=== PATIENT | male | born 1995 | race Caucasian/White ===

== ENCOUNTER 2017-06-15 00:27 | Emergency (ER) | payer OTHER ==
[2017-06-15 00:34] VITALS: BP 148/92; PULSE 78; RESP 16; TEMP 97.5; O2SAT 95
[2017-06-15] MEDS ORDERED: PROPARACAINE 0.5% 15 ML OPHT DROP OP ONE (01:07)
[2017-06-15] MEDS ORDERED: AMOXICILLIN/CLAVULANATE POT 875/125 MG TAB PO ONE (01:07)
[2017-06-15] MEDS ORDERED: FLUORESCEIN SODIUM 1 MG STRIP OP ONE (01:07)
[2017-06-15] MEDS ORDERED: ERYTHROMYCIN 0.5% 1 GM OPHT.OINT RTEYE ONE (01:59)
--- NOTE | 2017-06-15 01:59 | EDPHY ---
General Narrative: CHIEF COMPLAINT: Dog bite to right eye HISTORY OF PRESENT ILLNESS: Patient complains of dog bite to the right eye. This happened less than 1 hr ago. He was at a friend's house when a pit bull jumped off the couch and bit him when he was trying to pet him. The dog is reportedly up-to-date on his vaccinations. No previous known aggressive behavior. He says he was bit in the right eye. He denies any difficulty with vision but notes some swelling of the eyelid. There lacerations to the right eyelid and just lateral to the right eye. Mildly painful. Some bleeding that has stopped. No painful movement of the eyes. No headache. No loss of consciousness. No injury elsewhere. He is up-to-date on his tetanus vaccination. No other associated complaints or modifying factors. TIME OF INJURY: Less than 2 hr ago TETANUS STATUS: Up-to-date MEDICAL/SURGICAL/SOCIAL HISTORY: Uncomplicated. [employer] student. Plays [employer]. Originally from [place] REVIEW OF SYSTEMS: Ten systems reviewed and are negative unless otherwise noted in the HPI EXAMINATION General Appearance: Alert, no distress Head: normocephalic. Ecchymosis to the area of dog bite. HEENT: Pupils equal round reactive to light. No hyphema. No subconjunctival hemorrhage. 1.5 cm laceration to the right upper eyelid that is superficial. There is a 0.5 cm laceration to the right of the right eye, up to but not including the lateral canthus. No foreign body in either the lacerations. Visual colon intact by confrontation. Fluorescein exam: Wood lamp examination reveals no fluorescein uptake. No foreign body. Lid everted. Cardiovascular: Pulses normal throughout. Brisk cap refill Neurological: GCS 15. A&O, sensory symmetric, strength symmetric Skin: Warm and dry, no rash. Lacerations as above Extremities: Nontender, no pedal edema DIFFERENTIAL DIAGNOSES: Including but not limited to laceration, superficial laceration, complex laceration, laceration with canthus injury, corneal abrasion, conjunctival abrasion MDM: 1:20 a.m. Dog bite to the right eyelid and just lateral to the right eye. No obvious injury to the eye or canthus. Tetanus up-to-date. I have anesthetized the laceration. Proceed with irrigation re-evaluation. 2:00 a.m. Lacerations irrigated and re-evaluated. The upper eyelid laceration has been closed without difficulty. There was special attention taken to avoid the tarsal plate. The lateral laceration did not involve the lateral canthus. It was very close to this but did not included. This was a superficial laceration that was actually a skin tear. This was closed with simple suture. We discuss erythromycin ointment to the eye 3 times daily. We discussed Augmentin twice daily, 1st dose was given here. We discussed close monitoring of the wound given the etiology. We discussed Ophthalmology follow-up on Friday, and this information has been provided. We discussed ED precautions. He is comfortable this plan. His visual acuity is normal by my evaluation. He is discharged home in stable condition. PROCEDURE: Laceration repair, #1. Consent: Verbal Location: Right upper eyelid Length of repair: 1.5 cm Complexity: Complex due to location Layer involvement: Single Anesthesia: Local per 1% lidocaine plain. 5 mL Irrigation: Extensive Debridement: None Procedure description: Following good anesthesia, the wound was copiously irrigated. Wound bed was explored with a sterile glove, and there is no foreign body noted. No obvious injury to the tarsal plate. No foreign body. No injury to the inner eyelid. Wound borders were approximated well with good hemostasis. Tolerated well without complication. Suture/Staple material: 6-0 Prolene, 2 simple interrupted sutures Wound care: Routine as discussed Suture/Staple removal: 5-7 Days PROCEDURE: Laceration repair, #2 Consent: Verbal Location: Right cheek, just lateral to canthus Length of repair: 1 cm Complexity: Simple Layer involvement: Single Anesthesia: Local. 1% lidocaine plain. 3 mL Irrigation: Extensive Debridement: None Procedure description: Following good anesthesia, the wound was copiously irrigated. Wound bed was explored with a sterile glove, and there is no foreign body noted. No injury to the canthus. Wound borders were approximated well with good hemostasis. Tolerated well without complication. Suture/Staple material: 6-0 Prolene, 1 simple interrupted suture Wound care: Routine as discussed Suture/Staple removal: 5-7 Days SUPERVISION: Patient was independently examined, but I discussed the case with my secondary supervising physician Dr. Miguel ED Precautions: Worsening pain. Erythema, edema, cyanosis, pallor, paresthesia or anesthesia. - History Smoking Status: Never smoked - Objective Vital Signs: Initial Vital Signs Temperature (C) 97.5 F 06/15/17 00:31 Heart Rate 78 06/15/17 00:31 Respiratory Rate 16 06/15/17 00:31 Blood Pressure 148/92 H 06/15/17 00:31 O2 Sat (%) 95 06/15/17 00:31 O2 Delivery Mode Room Air Allergies/Adverse Reactions: No Known Allergies Allergy (Unverified 06/15/17 00:34) Home Medications: Medication Instructions Recorded Amoxicillin/Clavulanate Pot 875 mg PO BID #14 tab 06/15/17 [Augmentin 875 MG TAB (*)] Medications Given: Discontinued Medications Amoxicillin/Clavulanate Potassium (Augmentin 875mg) 875 mg PO EDNOW ONE PRN Reason: Protocol Stop: 06/15/17 01:08 Last Admin: 06/15/17 01:16 Dose: 875 mg Erythromycin (Erythromycin 0.5%) 1 jose RTEYE ONCE ONE Stop: 06/15/17 02:00 Last Admin: 06/15/17 02:16 Dose: 1 jose Fluorescein Sodium ([id number]) 1 mg OP EDNOW ONE Stop: 06/15/17 01:08 Last Admin: 06/15/17 01:17 Dose: 1 mg Proparacaine HCl (Alcaine 0.5%) 1 drops OP EDNOW ONE Stop: 06/15/17 01:08 Last Admin: 06/15/17 01:16 Dose: 1 drop Departure - Departure Disposition: Home, Routine, Self-Care Clinical Impression: Dog bite of face Qualifiers: Encounter type: initial encounter Qualified Code(s): S01.85XA - Open bite of other part of head, initial encounter; W54.0XXA - Bitten by dog, initial encounter; W54.0XXA - Bitten by dog, initial encounter Eyelid laceration, right Qualifiers: Encounter type: initial encounter Qualified Code(s): S01.111A - Laceration without foreign body of right eyelid and periocular area, initial encounter Condition: Good Instructions: Erythromycin (Into the eye), Animal Bite (ED), Care For Your Stitches (ED), Laceration (ED) Additional Instructions: 1. Augmentin as prescribed to completion 2. Erythromycin ointment to the right eye until seen by blade operator 3. Contact blade operator Jayson morning for outpatient evaluation on Friday or Friday 4. Return to emergency department for wound check in 48 hr unless seen by blade operator that day 5. ED precautions as discussed 6. Suture removal in this emergency department in 5-7 days Referrals: Adia Reese MD [Medical Doctor] - As per Instructions Prescriptions: Amoxicillin/Clavulanate Pot [Augmentin 875 MG TAB (*)] 875 mg PO BID #14 tab
== END 2017-06-15 02:20 | disposition home or self-care (01) ==
PROC: 0HQ1XZZ Repair Face Skin, External Approach (ICD-10-PCS; principal; 2017-06-15)
PROC: 08QNXZZ Repair Right Upper Eyelid, External Approach (ICD-10-PCS; principal; 2017-06-15)
DX: S01.85XA Open bite of other part of head, initial encounter (principal); S01.111A Laceration without foreign body of right eyelid and periocular area, initial encounter; W54.0XXA Bitten by dog, initial encounter; Y92.009 Unspecified place in unspecified non-institutional (private) residence as the place of occurrence of the external cause; Y93.39 Activity, other involving climbing, rappelling and jumping off

== ENCOUNTER 2018-05-01 01:53 | Emergency (ER) | payer OTHER ==
--- NOTE | 2018-05-01 02:05 | EDPHY ---
H & P Stated Complaint: FACIAL LACS, FALL/ETOH Time Seen by Provider: 05/01/18 02:05 HPI/ROS: HPI CHIEF COMPLAINT: Fall alcohol intoxication, multiple facial lacerations HISTORY OF PRESENT ILLNESS: 23-year-old male, presents emergency room at 2:00 a.m. The morning after he had a mechanical trip and fall. He went out drinking tonight for his 23st birthday which was 2 days ago. States he had a large amount of liquor to drink tonight. Over 5 shots. Became intoxicated, was walking home with friends tripped and fell landing on his face. He has a hematoma to the right forehead, a midline forehead laceration, a laceration over the nasal bridge, and a right upper lip laceration. Patient dentition intact. No malocclusion with bite. No jaw pain. No LOC. No vomiting. Arrives to the emergency room highly intoxicated with alcohol. Smells of alcohol slurring his speech. Reports tetanus shot is up-to-date. Past Medical History: Denies medical history Past Surgical History: Denies surgical history Social History: Large amount of alcohol this evening. [employer] student. Family History: Noncontributory ROS REVIEW OF SYSTEMS: 10 Systems were reviewed and negative with the exception of the elements mentioned in the history of present illness. Exam Constitutional intoxicated, smells of alcohol, slurring speech triage nursing summary reviewed, vital signs reviewed, awake/alert. Eyes normal conjunctivae and sclera, EOMI, PERRLA. HENT normal inspection, atraumatic, moist mucus membranes, no epistaxis, neck supple/ no meningismus, no raccoon eyes. Face: Midface stable, no crepitus, no malocclusion with bite, dentition intact , no Vazquez sign, no raccoon eyes, multiple facial lacerations, nasal bridge swollen. Eyes unremarkable. 1. 1.5 cm horizontally mid forehead laceration 2. Nasal bridge 2 cm laceration middle nasal bridge 3. Right upper lip laceration 3 V shaped cm. 4. Multiple superficial abrasions to the right upper lip. 5. No septal hematoma on exam. 6. Upper lip laceration middle 3cm vertical 7. Inside lower lip small tear to frenulum. Respiratory clear to auscultation bilaterally, normal breath sounds, no respiratory distress, no wheezing. Cardiovascular rate normal, regular rhythm, no murmur, no edema, distal pulses normal. Gastrointestinal soft, non-tender, no rebound, no guarding, normal bowel sounds, no distension, no pulsatile mass. Genitourinary no CVA tenderness. Musculoskeletal no midline vertebral tenderness, full range of motion, no calf swelling, no tenderness of extremities, no meningismus, good pulses, neurovascularly intact. Skin pink, warm, & dry, no rash, skin atraumatic. Neurologic awake, alert and oriented x 3, AAOx3, moves all 4 extremities equally, motor intact, sensory intact, CN II-XII intact, normal cerebellar, normal vision, slurring speech intoxicated with alcohol Psychiatric normal mood/affect. Heme/Lymph/Immune no lymphadenopathy. Differential Diagnosis: Includes but is not limited to acute alcohol intoxication, closed head injury, intracranial bleed, skull fracture, scalp hematoma, multiple soft tissue injuries, multiple lacerations Medical Decision Making: Plan for this patient CT scan head without contrast CT cervical spine without contrast given alcohol intoxication and fall and trauma will then need to clean his wounds out copiously. And then will need repair. Re-evaluation: Indication for CT scan head and neck fall, alcohol intoxication, multiple facial lacerations, right forehead hematoma. CT scan head without contrast and CT cervical spine without contrast negative for acute trauma called to me by Dr. Babb. Laceration Repair Procedure: Verbal Consent was obtained, Under sterile conditions, The patient had lidocaine with epinephrine used approximately 3ccs to local anesthetize the 1.5 cm horizontally mid forehead laceration. The wound was copiously irrigated with sterile fluid, the wound was explored for foreign bodies there were none visualized, the wound was explored with a sterile glove to the base. There are no deep structures involved, including no arterial injury. ONE 6.O PROLENE interrupted Sutures were placed in this patient's laceration. He had good close approximation of the wound edges. He Tolerated this well. Laceration Repair Procedure: Verbal Consent was obtained, Under sterile conditions, The patient had lidocaine with epinephrine used approximately 4ccs to local anesthetize the Nasal bridge 2 cm laceration middle nasal bridge Laceration. The wound was copiously irrigated with sterile fluid, the wound was explored for foreign bodies there were none visualized, the wound was explored with a sterile glove to the base. There are no deep structures involved, including no arterial injury. TWO 6.O PROLENE interrupted Sutures were placed in this patient's laceration. He had good close approximation of the wound edges. He Tolerated this well. Laceration Repair Procedure: Verbal Consent was obtained, Under sterile conditions, The patient had lidocaine with epinephrine used approximately 3ccs to local anesthetize the Right upper lip laceration 3 V shaped cm.Laceration. The wound was copiously irrigated with sterile fluid, the wound was explored for foreign bodies there were none visualized, the wound was explored with a sterile glove to the base. There are no deep structures involved, including no arterial injury. THREE 6.O PROLENE interrupted Sutures were placed in this patient's laceration. He had good close approximation of the wound edges. He Tolerated this well. Laceration Repair Procedure: Verbal Consent was obtained, Under sterile conditions, The patient had lidocaine with epinephrine used approximately 3ccs to local anesthetize the Upper lip laceration middle 3cm vertical Laceration. The wound was copiously irrigated with sterile fluid, the wound was explored for foreign bodies there were none visualized, the wound was explored with a sterile glove to the base. There are no deep structures involved, including no arterial injury. TWO 6.O PROLENE interrupted Sutures were placed in this patient's laceration. He had good close approximation of the wound edges. He Tolerated this well. Of note these patient's wounds were copiously irrigating clean. Antibiotics will be given for prophylactic coverage. Patient understands have sutures removed in 7 days. Patient understands to watch for signs of infection this includes redness, drainage, pus, swelling, pain. Fever. Return if worse. Patient is comfortable this plan understands. I discussed this at length the patient's friends at bedside. As the patient is intoxicated. Additionally this will be placed on his discharge paperwork. Breath alcohol 182 at time of admission to the ER. 4:29 a.m. Patient ambulated well throughout the emergency room without any difficulty. Stable gait. Clinically sober. Source: Patient - Personal History Current Tetanus Diphtheria and Acellular Pertussis (TDAP): Yes - Medical/Surgical History Hx Asthma: No Hx Chronic Respiratory Disease: No Hx Diabetes: No Hx Cardiac Disease: No Hx Renal Disease: No Hx Cirrhosis: No Hx Alcoholism: No Hx HIV/AIDS: No Hx Splenectomy or Spleen Trauma: No Other PMH: none - Social History Smoking Status: Never smoked Constitutional: Initial Vital Signs Temperature (C) 36.3 C 05/01/18 02:02 Heart Rate 68 05/01/18 02:02 Respiratory Rate 16 05/01/18 02:02 Blood Pressure 137/76 H 05/01/18 02:02 O2 Sat (%) 95 05/01/18 02:02 O2 Delivery Mode Room Air Allergies/Adverse Reactions: No Known Allergies Allergy (Verified 05/01/18 02:00) Home Medications: Medication Instructions Recorded Cephalexin [Keflex (*)] 500 mg PO Q6H #28 cap 05/01/18 Medical Decision Making - Data Points Medications Given: Discontinued Medications Cephalexin (Keflex 500 Mg Prepack#4) 1 btl TAKEHOME EDNOW ONE PRN Reason: Protocol Stop: 05/01/18 03:33 Last Admin: 05/01/18 03:36 Dose: 1 btl Cephalexin HCl (Keflex) 500 mg PO EDNOW ONE PRN Reason: Protocol Stop: 05/01/18 03:33 Last Admin: 05/01/18 03:36 Dose: 500 mg Departure - Departure Disposition: Home, Routine, Self-Care Clinical Impression: Laceration, Hematoma Alcohol intoxication Qualifiers: Complication of substance-induced condition: uncomplicated Qualified Code(s): F10.920 - Alcohol use, unspecified with intoxication, uncomplicated Facial laceration Qualifiers: Encounter type: initial encounter Qualified Code(s): S01.81XA - Laceration without foreign body of other part of head, initial encounter Condition: Good Instructions: Cephalexin (By mouth), Care For Your Stitches (ED), Laceration ( ED), Hematoma (ED) Additional Instructions: 1. Keep wound clean, dry and protected 2. Warm soapy water over your wounds in 24 hr 3. Your sutures need to be removed in 7 days. 4. Please watch for infection this includes swelling, pain, redness, fever or any questions or concerns about your wounds. 5. Return emergency room if any questions or concerns 6. Antibiotics as prescribed. Referrals: Patient,NotPresent [Unknown] - As per Instructions Prescriptions: Cephalexin [Keflex (*)] 500 mg PO Q6H #28 cap
[2018-05-01] MEDS ORDERED: CEPHALEXIN 500MG PREPACK#4 BTL TAKEHOME ONE (03:32)
[2018-05-01] MEDS ORDERED: CEPHALEXIN 500 MG CAP PO ONE (03:32)
[2018-05-01 04:26] VITALS: BP 124/67
== END 2018-05-01 04:39 | disposition home or self-care (01) ==
DX: S01.81XA Laceration without foreign body of other part of head, initial encounter (principal); S01.21XA Laceration without foreign body of nose, initial encounter; S01.511A Laceration without foreign body of lip, initial encounter; S00.511A Abrasion of lip, initial encounter; F10.920 Alcohol use, unspecified with intoxication, uncomplicated; W01.0XXA Fall on same level from slipping, tripping and stumbling without subsequent striking against object, initial encounter; Y92.9 Unspecified place or not applicable; Y93.9 Activity, unspecified; Y99.9 Unspecified external cause status